=== PATIENT | male | born 1985 | race African-American/Black ===

== ENCOUNTER 2018-02-25 11:40 | Emergency (ER) | payer MEDICAID ==
[~2018-02-25] VITALS: Ht 172.7 cm; Wt 84.0 kg
[2018-02-25 11:44] VITALS: BP 146/97
== END 2018-02-25 14:50 | disposition home or self-care (01) ==
LOC: ER 13:04
DX: R59.0 Localized enlarged lymph nodes (principal); J06.9 Acute upper respiratory infection, unspecified; F12.10 Cannabis abuse, uncomplicated; F17.200 Nicotine dependence, unspecified, uncomplicated
CPT/HCPCS: 99282; Z7610; 99283